=== PATIENT | male | born 1990 | race Caucasian/White ===

== ENCOUNTER 2019-01-27 17:11 | Emergency (ER) | payer OTHER ==
[~2019-01-27] VITALS: Ht 188 cm; Wt 152.4 kg
[2019-01-27] MEDS ORDERED: NOHOMEMEDICATIONS (17:22)
[2019-01-27] MEDS ORDERED: MEDROLDOSEPACK PO (17:44)
[2019-01-27] MEDS ORDERED: NABUMETONE 750750 M1 PO (17:44)
[2019-01-27] MEDS ORDERED: ZANAFLEX4 MG PO (17:44)
[2019-01-27] MEDS ORDERED: NORCO 5-325 TA1 EAC1 PO (17:44)
[2019-01-27 18:44] VITALS: BP 186/97
== END 2019-01-27 18:47 | disposition home or self-care (01) ==
LOC: M.ERS 17:11
DX: M54.42 Lumbago with sciatica, left side (principal)